=== PATIENT | female | born 1950 | race Caucasian/White ===

== ENCOUNTER → 2025-07-19 | Outpatient (CLI) | payer MEDICARE, SELFPAY ==
--- NOTE | 2025-07-19 12:43 | US_ITS ---
PROCEDURE: THYROID 07/19/2025 REASON FOR EXAM: MULTINODULAR THYROID TECHNIQUE: Procedure Code: USTHY Modality: US Procedure: THYROID COMPARISON: None. FINDINGS: MEASUREMENTS: Right lobe: 3.3 x 1.8 x 1.2 cm. Left lobe: 4 x 1.6 x 1.5 cm. Isthmus: 2 mm. RIGHT SIDE: Heterogeneous echotexture. The right thyroid contains a mostly solid, isoechoic, wider than tall, smooth nodule measuring 0.8 x 0.8 x 0.7 cm without evidence of echogenic foci. (TR 3) LEFT SIDE: Heterogeneous echotexture. No discrete lesion. ISTHMUS: No evidence of nodule or mass. Normal vascularity without microcalcification. No enlarged lymph nodes within the visualized neck. US/Thyroid IMPRESSION: 1. Diffusely heterogenous thyroid which can be seen with autoimmune disorders. 2. Single subcentimeter thyroid nodule. TI-RADS 3, MILDLY SUSPICIOUS. RECOMMENDATIONS: Recommend repeat ultrasound in two years as this nodule does not currently meet size criteria for image guided fine needle aspiration. ACR TI-RADS Guidelines TI RADS 1 - Benign; No FNA TI RADS 2- Not Suspicious; No FNA TI RADS 3- Mildly Suspicious; FNA if >2.5cm or Follow if >1.5cm at 1, 3 and 5 y ears. TI RADS 4- Moderately Suspicious; FNA if >1.5cm or Follow if >1cm at 1, 2, 3 an d 5 years. TI RADS 5- Highly Suspicious; FNA if >1cm or Follow if >0.5cm yearly for up to 5 years. Reference: Truman FN, Fuad WD, [place] EG et al. ACR Thyroid Imaging, Repor ting and Data System (TI-RADS): White Paper of the ACR TI-RADS Committee. Alejandro Am Reading Location: [facility]
== END | disposition home or self-care (01) ==
DX: E04.2 Nontoxic multinodular goiter (principal)
CPT/HCPCS: 76536